=== PATIENT | male | born 1955 | race Caucasian/White ===

== ENCOUNTER 2018-12-11 13:30 | Inpatient (IN) | payer BC ==
[2018-12-11] MEDS ORDERED: NS 0.9% 1000 ML** 1,000 ML IV ONE (14:02)
[2018-12-11 14:26] LABS: ABS Eosinophils 0.1 10^3/ul (0-0.6); ABS Lymphocytes 1.1 10^3/ul (1.0-4.8); ABS Monocytes 0.8 10^3/ul (0-0.8); ABS Neutrophils 6.5 10^3/ul (1.5-7.7); Eosinophil % 0.7 %; Hematocrit 48 % (42-52); Hemoglobin 16.5 g/dL (14.0-18.0); Mean Corpuscular HGB Conc 34 g/dL (31-36); Mean Corpuscular Hemoglobin 32 pg (27-31); Mean Corpuscular Volume 92 fL (80-94); Mean Platelet Volume 7.9 fL (7.4-10.4); Nucleated Red Blood Cells % 0.4; Platelet Count 220 10^3/uL (150-450); Red Blood Count 5.24 10^6 /uL (4.18-5.48); Red Cell Distribution Width 13 % (10-15); White Blood Count 8.5 10^3/uL (3.5-10.8)
[2018-12-11 14:45] LABS: Albumin 4.5 g/dL (3.2-5.2); Albumin/Globulin Ratio 1.7 (1-3); C Reactive Protein 4.14 mg/L (<8.01); Calcium 9.6 mg/dL (8.6-10.3); EGFR African American 116.5 (>60); EGFR Non-African American 96.2 (>60); Globulin 2.7 g/dL (2-4); Potassium 3.7 mmol/L (3.5-5.0); Total Bilirubin 0.7 mg/dL (0.2-1.0); Total Protein 7.2 g/dL (6.4-8.9)
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
[2018-12-11] MEDS ORDERED: oxyCODONE/Acetamin 5/325 MG* TAB PO PRN (17:42)
[2018-12-11] MEDS ORDERED: traMADol TAB* 50 MG PO PRN (17:42)
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
[2018-12-11] MEDS: Heparin VIAL(*) 5000 UNITS/ML VIAL (FIVE THOUSAND) SUBCUT SCH (21:20)
[2018-12-12 00:22] LABS: Urine Appearance Clear; Urine Bilirubin Negative (Negative); Urine Blood Negative (Negative); Urine Color Yellow; Urine Glucose Negative (Negative); Urine Ketones 1+ (Negative); Urine Nitrite Negative (Negative); Urine Protein Negative (Negative); Urine Specific Gravity 1.018 (1.010-1.030); Urine Urobilinogen Negative (Negative)
[2018-12-12] MEDS: Heparin VIAL(*) 5000 UNITS/ML VIAL (FIVE THOUSAND) SUBCUT SCH ×3 (05:33→22:25)
[2018-12-12] MEDS: Aspirin EC TAB* 81 MG TAB.EC PO SCH (07:47)
[2018-12-12] MEDS: Hydrochlorothiazide TAB* 25 MG PO SCH (07:47)
[2018-12-12] MEDS: amLODIPine TAB* 5 MG PO SCH (07:51)
[2018-12-12] MEDS: Atorvastatin* 10 MG TAB PO SCH (07:51)
[2018-12-12] MEDS: Ramipril CAP* 10 MG PO SCH (07:51)
[2018-12-12] MEDS: Tamsulosin CAP* 0.4 MG PO SCH (11:29)
[2018-12-13] MEDS: Heparin VIAL(*) 5000 UNITS/ML VIAL (FIVE THOUSAND) SUBCUT SCH ×3 (06:24→22:01)
[2018-12-13] MEDS: Hydrochlorothiazide TAB* 25 MG PO SCH (10:15)
[2018-12-13] MEDS: Tamsulosin CAP* 0.4 MG PO SCH (10:16)
[2018-12-13] MEDS: amLODIPine TAB* 5 MG PO SCH (10:16)
[2018-12-13] MEDS: Atorvastatin* 10 MG TAB PO SCH (10:16)
[2018-12-13] MEDS: Aspirin EC TAB* 81 MG TAB.EC PO SCH (10:16)
[2018-12-13] MEDS: Acetaminophen TAB* 325 MG PO PRN (10:16)
[2018-12-13] MEDS: Ramipril CAP* 10 MG PO SCH (10:16)
[2018-12-13] MEDS: Docusate CAP* 100 MG PO PRN (22:01)
[2018-12-14] MEDS: Heparin VIAL(*) 5000 UNITS/ML VIAL (FIVE THOUSAND) SUBCUT SCH ×3 (06:35→22:46)
[2018-12-14] MEDS: Senna TAB 8.6 mg* TAB PO PRN (08:38)
[2018-12-14] MEDS: Docusate CAP* 100 MG PO PRN (08:38)
[2018-12-14] MEDS: Atorvastatin* 10 MG TAB PO SCH (08:38)
[2018-12-14] MEDS: Ramipril CAP* 10 MG PO SCH (08:38)
[2018-12-14] MEDS: amLODIPine TAB* 5 MG PO SCH (08:39)
[2018-12-14] MEDS: Hydrochlorothiazide TAB* 25 MG PO SCH (08:39)
[2018-12-14] MEDS: Tamsulosin CAP* 0.4 MG PO SCH (08:39)
[2018-12-14] MEDS: Aspirin EC TAB* 81 MG TAB.EC PO SCH (08:39)
[2018-12-15] MEDS: Heparin VIAL(*) 5000 UNITS/ML VIAL (FIVE THOUSAND) SUBCUT SCH ×3 (07:01→21:07)
[2018-12-15] MEDS: Hydrochlorothiazide TAB* 25 MG PO SCH (08:32)
[2018-12-15] MEDS: amLODIPine TAB* 5 MG PO SCH (08:32)
[2018-12-15] MEDS: Aspirin EC TAB* 81 MG TAB.EC PO SCH (08:32)
[2018-12-15] MEDS: Docusate CAP* 100 MG PO PRN (08:33)
[2018-12-15] MEDS: Senna TAB 8.6 mg* TAB PO PRN (08:33)
[2018-12-15] MEDS: Tamsulosin CAP* 0.4 MG PO SCH (08:33)
[2018-12-15] MEDS: Atorvastatin* 10 MG TAB PO SCH (08:33)
[2018-12-15] MEDS: Acetaminophen TAB* 325 MG PO PRN ×2 (08:33→21:10)
[2018-12-15] MEDS: Ramipril CAP* 10 MG PO SCH (08:33)
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
[2018-12-16] MEDS: Heparin VIAL(*) 5000 UNITS/ML VIAL (FIVE THOUSAND) SUBCUT SCH (06:07)
[2018-12-16] MEDS: amLODIPine TAB* 5 MG PO SCH (10:06)
[2018-12-16] MEDS: Hydrochlorothiazide TAB* 25 MG PO SCH (10:06)
[2018-12-16] MEDS: Aspirin EC TAB* 81 MG TAB.EC PO SCH (10:06)
[2018-12-16] MEDS: Atorvastatin* 10 MG TAB PO SCH (10:06)
[2018-12-16] MEDS: Ramipril CAP* 10 MG PO SCH (10:06)
[2018-12-16] MEDS: Tamsulosin CAP* 0.4 MG PO SCH (10:06)
[2018-12-16 10:13] VITALS: BP 139/70
== END 2018-12-16 11:00 | DRG 347 ==
LOC: ED 13:30 → MED 17:38
PROVIDERS: ADMIT Hospitalist; ATTEND Internal Medicine
DX: M54.5 Low back pain (principal); G81.94 Hemiplegia, unspecified affecting left nondominant side; M25.552 Pain in left hip; M25.551 Pain in right hip; I10 Essential (primary) hypertension; E78.5 Hyperlipidemia, unspecified; M16.0 Bilateral primary osteoarthritis of hip; M47.896 Other spondylosis, lumbar region; M21.372 Foot drop, left foot; Z75.1 Person awaiting admission to adequate facility elsewhere; Z87.820 Personal history of traumatic brain injury; Z79.82 Long term (current) use of aspirin; Z79.899 Other long term (current) drug therapy; Z87.891 Personal history of nicotine dependence
CPT/HCPCS: 36415; 72110; 72170; 80053; 81003; 82550; 83690; 84484; 85025; 86140; 93005; 99284; A9270-GY; G8978-GP-CK; G8979-GP-CI; J1644

== ENCOUNTER 2019-05-06 15:14 | Inpatient (IN) | payer BC ==
[2019-05-06] MEDS ORDERED: oxyCODONE/Acetamin 5/325 MG* TAB PO ONE (16:01)
--- NOTE | 2019-05-06 16:03 | ED ---
Lower Extremity - HPI Summary HPI Summary: Patient is a 64-year-old male who presents emergency department for worsening left hip pain and inability to walk secondary to pain. Patient is a history of brain injury resulting in hemiparesis of left lower extremity. He is a chronic left foot drop. Patient states over the last year he is been having progressively worse hip pain. Patient was seen and are ER December 2018 for hip and low back pain and was admitted custodially and placed at [facility]. Pt. was feeling better with PT/OT. Pt. is currently living at his private home by himself. He take percocet occasionally for pain. Pt. denies any new falls or injuries. Pt. states pain was so severe the last few days and he cannot walk secondary to pain. Pt. has apt. with orth next week but states he could not wait that long. Otherwise denies fever, illness, cp, sob, abd. pain. Sxs are moderate in severity. - History of Current Complaint Chief Complaint: EDFall Stated Complaint: LEG INJURY PER EMS Time Seen by Provider: 05/06/19 15:23 Hx Obtained From: Patient Pain Intensity: 3 - Allergies/Home Medications Allergies/Adverse Reactions: Allergies Allergy/AdvReac Type Severity Reaction Status Date / Time No Known Allergies Allergy Verified 12/11/18 13:45 PMH/Surg Hx/FS Hx/Imm Hx Previously Healthy: Yes Cardiovascular History: Reports: Hx Hypertension Musculoskeletal History: Reports: Other Musculoskeletal History Sensory History: Reports: Hx Contacts or Glasses Denies: Hx Hearing Aid Opthamlomology History: Reports: Hx Contacts or Glasses Neurological History: Reports: Hx Spinal Cord Injury - Surgical History Surgery Procedure, Year, and Place: right shoulder Infectious Disease History: No Infectious Disease History: Denies: Traveled Outside the [place] in Last 30 Days - Family History Known Family History: Positive: Non-Contributory - Social History Occupation: Retired Lives: Alone Alcohol Use: Daily Alcohol Amount: 6-8oz Hx Substance Use: No Substance Use Type: Reports: None Substance Use Comment - Amount & Last Used: 3-5 times a week Hx Tobacco Use: Yes Smoking Status (MU): Former Smoker Review of Systems Constitutional: Negative Negative: Fever Cardiovascular: Negative Negative: Chest Pain Respiratory: Negative Negative: Shortness Of Breath Gastrointestinal: Negative Negative: Abdominal Pain Positive: Other - left hip pain Skin: Negative All Other Systems Reviewed And Are Negative: Yes Physical Exam Triage Information Reviewed: Yes Vital Signs On Initial Exam: Initial Vitals Temp Pulse Resp BP Pulse Ox 98 F 83 16 155/86 94 05/06/19 15:19 05/06/19 15:19 05/06/19 15:19 05/06/19 15:19 05/06/19 15:19 Vital Signs Reviewed: Yes Appearance: Positive: Well-Appearing - Pt. lying in bed in NAD. Sister present. Skin: Positive: Warm, Dry Head/Face: Positive: Normal Head/Face Inspection Eyes: Positive: Normal, EOMI Neck: Positive: Supple Abdomen Description: Positive: Nontender, Soft Musculoskeletal: Positive: Other - Chronic left foot drop. No erythema, wounds, or edema to left leg. Full ROM at knee and hip. Neurological: Positive: Normal, CN Intact II-III Psychiatric: Positive: Affect/Mood Appropriate Procedures - Sedation Patient Received Moderate/Deep Sedation with Procedure: No Diagnostics - Vital Signs Vital Signs Temp Pulse Resp BP Pulse Ox 05/06/19 15:19 98 F 83 16 155/86 94 - Laboratory Result Diagrams: 05/06/19 16:43 05/06/19 16:43 Lab Statement: Any lab studies that have been ordered have been reviewed, and results considered in the medical decision making process. Lower Extremity Course/Dx - Course Course Of Treatment: Pt. unable to bear weight to left leg secondary to hip pain. Afebrile. He typically ambulated with walker. Pt. states he is now unable to get to the bathroom and lives alone. Case discussed with Dr. Bowman. Basic labs unremarkable. Percocet given for pain. Pt. seen by social media marketing manager. Pt. would like to go back to [facility]. Case discussed with Dr. rivas and plan is for admission for jail placement on Thursday. Pt. and family concerned for possible occult fx or injury that is not being seen on xrays. Will obtain ct for further eval. - Diagnoses Differential Diagnosis/HQI/PQRI: Positive: Arthritis, Bursitis, Gout, Sprain, Strain, Tendonitis Provider Diagnoses: Hip pain Discharge ED - Sign-Out/Discharge Documenting (check all that apply): Patient Departure - Discharge Plan Condition: Stable Disposition: ADMITTED TO [facility] Referrals: Casa Pat MD [Primary Care Provider] - - Billing Disposition and Condition Condition: STABLE Disposition: Admitted to [facility]
[2019-05-06 16:49] LABS: ABS Eosinophils 0.1 10^3/ul (0-0.6); ABS Lymphocytes 1.4 10^3/ul (1.0-4.8); ABS Monocytes 0.8 10^3/ul (0-0.8); ABS Neutrophils 4.9 10^3/ul (1.5-7.7); Hematocrit 44 % (42-52); Hemoglobin 15.3 g/dL (14.0-18.0); Mean Corpuscular HGB Conc 35 g/dL (31-36); Mean Corpuscular Hemoglobin 31 pg (27-31); Mean Corpuscular Volume 90 fL (80-94); Mean Platelet Volume 7.4 fL (7.4-10.4); Platelet Count 222 10^3/uL (150-450); Red Blood Count 4.92 10^6 /uL (4.18-5.48); Red Cell Distribution Width 14 % (10-15); White Blood Count 7.2 10^3/uL (3.5-10.8)
[2019-05-06 17:08] LABS: Albumin 4.3 g/dL (3.2-5.2); Albumin/Globulin Ratio 1.8 (1-3); BUN/Creatinine Ratio 20.6 (8-20); C Reactive Protein 3.06 mg/L (<8.01); Calcium 9.4 mg/dL (8.6-10.3); EGFR African American 142.1 (>60); EGFR Non-African American 117.4 (>60); Globulin 2.4 g/dL (2-4); Total Bilirubin 0.5 mg/dL (0.2-1.0); Total Protein 6.7 g/dL (6.4-8.9); Uric Acid 3.8 mg/dL (4.4-7.6)
[2019-05-06 18:26] LABS: Erythrocyte Sed Rate 7 mm/Hr (0-19)
[2019-05-06] MEDS ORDERED: Morphine INJ* 2 MG/ML 1 ML SYRINGE (TWO MG - NEW SYRINGE VERSION) IV PRN (18:46)
[2019-05-06] MEDS ORDERED: Acetaminophen TAB* 325 MG PO PRN (18:46)
[2019-05-06] MEDS: Heparin VIAL(*) 5000 UNITS/ML VIAL (FIVE THOUSAND) SUBCUT SCH (23:07)
[2019-05-06] MEDS: Docusate CAP* 100 MG PO PRN (23:52)
[2019-05-06] MEDS: oxyCODONE/Acetamin 5/325 MG* TAB PO PRN (23:53)
[2019-05-07] MEDS: Heparin VIAL(*) 5000 UNITS/ML VIAL (FIVE THOUSAND) SUBCUT SCH ×3 (08:02→21:54)
[2019-05-07] MEDS: Docusate CAP* 100 MG PO PRN (08:24)
[2019-05-07] MEDS: Ramipril CAP* 10 MG PO SCH (08:25)
[2019-05-07] MEDS: Tamsulosin CAP* 0.4 MG PO SCH (08:25)
[2019-05-07] MEDS: Aspirin EC TAB* 81 MG TAB.EC PO SCH (08:25)
[2019-05-07] MEDS: Atorvastatin* 10 MG TAB PO SCH (08:25)
[2019-05-07] MEDS: amLODIPine TAB* 5 MG PO SCH (08:25)
[2019-05-07] MEDS ORDERED: Hydrochlorothiazide TAB* 25 MG PO SCH (09:00)
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
[2019-05-07] MEDS: oxyCODONE/Acetamin 5/325 MG* TAB PO PRN ×2 (16:57→21:54)
--- NOTE | 2019-05-07 17:55 | PN ---
Subjective Date of Service: 05/07/19 Interval History: Pt states he continues to have severe pain in the L lateral hip upon bearing weight. He has not moved his bowels in several days but thinks if he get onto a commode he may be able to. Objective Active Medications: Acetaminophen (Tylenol Tab*) 650 mg PO Q4H PRN PRN Reason: PAIN-MILD/TEMP >/= 100.4 Amlodipine Besylate (Norvasc Tab*) 10 mg PO DAILY [facility] Last Admin: 05/07/19 08:25 Dose: 10 mg Aspirin (Aspirin Ec Tab*) 81 mg PO DAILY [facility] Last Admin: 05/07/19 08:25 Dose: 81 mg Atorvastatin Calcium (Lipitor*) 10 mg PO DAILY [facility] Last Admin: 05/07/19 08:25 Dose: 10 mg Docusate Sodium (Colace Cap*) 100 mg PO DAILY PRN PRN Reason: CONSTIPATION Last Admin: 05/07/19 08:24 Dose: 100 mg Heparin Sodium (Porcine) (Heparin Vial(*)) 5,000 units SUBCUT Q8HR [facility] Last Admin: 05/07/19 13:46 Dose: 5,000 units Morphine Sulfate (Morphine Inj (Syringe))*) 2 mg IV Q4H PRN PRN Reason: PAIN - SEVERE Oxycodone/Acetaminophen (Percocet 5/325 Tab*) 1 tab PO Q4H PRN PRN Reason: PAIN - MODERATE Last Admin: 05/07/19 16:57 Dose: 1 tab Ramipril (Altace Cap*) 10 mg PO DAILY [facility] Last Admin: 05/07/19 08:25 Dose: 10 mg Senna (Senokot 8.6 Mg Tab*) 1 tab PO DAILY PRN PRN Reason: CONSTIPATION Tamsulosin HCl (Flomax Cap*) 0.4 mg PO DAILY [facility] Last Admin: 05/07/19 08:25 Dose: 0.4 mg Vital Signs - 8 hr 05/07/19 05/07/19 05/07/19 11:24 16:04 16:57 Temperature 98.3 F 98.3 F Pulse Rate 93 85 Respiratory 14 18 18 Rate Blood Pressure 115/65 120/74 (mmHg) O2 Sat by Pulse 94 97 Oximetry Oxygen Devices in Use Now: None Appearance: Middle aged male sitting up in a chair, NAD Eyes: No Scleral Icterus Ears/Nose/Mouth/Throat: Mucous Membranes Moist Respiratory: Symmetrical Chest Expansion and Respiratory Effort, Clear to Auscultation Cardiovascular: NL Sounds; No Murmurs; No JVD, RRR, No Edema Abdominal: NL Sounds; No Tenderness; No Distention Extremities: No Clubbing, Cyanosis Skin: No Nodules or Sclerosis Neurological: Alert and Oriented x 3, - - L hemiparesis Result Diagrams: 05/06/19 16:43 05/06/19 16:43 Assess/Plan/Problems-Billing Mr Paul is a 64 yo M with L hemiparesis who presented to the ER with c/o progressive L hip pain and the inability to ambulate. - Patient Problems (1) Left hip pain Current Visit: Yes Status: Acute Code(s): M25.552 - PAIN IN LEFT HIP SNOMED Code(s): 37195525 Comment: Pt describes pain in the lateral aspect of the hip. No injury identified on CT. Pain is only present when trying to roll over in bed or with bearing weight. Will ask for ortho consult tomorrow. Continue PT and prn percocet. (2) Hypertension Current Visit: Yes Status: Acute Code(s): I10 - ESSENTIAL (PRIMARY) HYPERTENSION SNOMED Code(s): 92419331 Comment: BP is under good control. Continue norvasc and ramipril. (3) Hyperlipidemia Current Visit: Yes Status: Acute Code(s): E78.5 - HYPERLIPIDEMIA, UNSPECIFIED SNOMED Code(s): 26924804 Comment: Continue lipitor. (4) BPH (benign prostatic hyperplasia) Current Visit: Yes Status: Acute Code(s): N40.0 - BENIGN PROSTATIC HYPERPLASIA WITHOUT LOWER URINRY TRACT SYMP SNOMED Code(s): 371311920 Comment: Continue flomax. (5) DVT prophylaxis Current Visit: Yes Status: Acute Code(s): Z29.9 - ENCOUNTER FOR PROPHYLACTIC MEASURES, UNSPECIFIED SNOMED Code(s): 254463394 Comment: SQ Heparin (6) Full code status Current Visit: Yes Status: Acute Code(s): Z78.9 - OTHER SPECIFIED HEALTH STATUS SNOMED Code(s): 048285770
[2019-05-08] MEDS: Heparin VIAL(*) 5000 UNITS/ML VIAL (FIVE THOUSAND) SUBCUT SCH ×3 (06:19→20:52)
[2019-05-08] MEDS: Ramipril CAP* 10 MG PO SCH (08:21)
[2019-05-08] MEDS: Atorvastatin* 10 MG TAB PO SCH (08:22)
[2019-05-08] MEDS: Aspirin EC TAB* 81 MG TAB.EC PO SCH (08:22)
[2019-05-08] MEDS: amLODIPine TAB* 5 MG PO SCH (08:22)
[2019-05-08] MEDS: Tamsulosin CAP* 0.4 MG PO SCH (08:22)
[2019-05-08] MEDS ORDERED: Magnesium Hydroxide LIQ* 30 ML UDC PO PRN (10:03)
--- NOTE | 2019-05-08 10:06 | PN ---
Subjective Date of Service: 05/08/19 Interval History: Pt is feeling unchanged from yesterday. He continues to have severe pain in the left lateral hip upon rolling over in bed or bearing weight. No CP or SOB. He had only a very small amount of stool yesterday. Objective Active Medications: Acetaminophen (Tylenol Tab*) 650 mg PO Q4H PRN PRN Reason: PAIN-MILD/TEMP >/= 100.4 Amlodipine Besylate (Norvasc Tab*) 10 mg PO DAILY [facility] Last Admin: 05/08/19 08:22 Dose: 10 mg Aspirin (Aspirin Ec Tab*) 81 mg PO DAILY [facility] Last Admin: 05/08/19 08:22 Dose: 81 mg Atorvastatin Calcium (Lipitor*) 10 mg PO DAILY [facility] Last Admin: 05/08/19 08:22 Dose: 10 mg Docusate Sodium (Colace Cap*) 100 mg PO DAILY PRN PRN Reason: CONSTIPATION Last Admin: 05/07/19 08:24 Dose: 100 mg Heparin Sodium (Porcine) (Heparin Vial(*)) 5,000 units SUBCUT Q8HR [facility] Last Admin: 05/08/19 06:19 Dose: 5,000 units Morphine Sulfate (Morphine Inj (Syringe))*) 2 mg IV Q4H PRN PRN Reason: PAIN - SEVERE Oxycodone/Acetaminophen (Percocet 5/325 Tab*) 1 tab PO Q4H PRN PRN Reason: PAIN - MODERATE Last Admin: 05/07/19 21:54 Dose: 1 tab Ramipril (Altace Cap*) 10 mg PO DAILY [facility] Last Admin: 05/08/19 08:21 Dose: 10 mg Senna (Senokot 8.6 Mg Tab*) 1 tab PO DAILY PRN PRN Reason: CONSTIPATION Tamsulosin HCl (Flomax Cap*) 0.4 mg PO DAILY [facility] Last Admin: 05/08/19 08:22 Dose: 0.4 mg Vital Signs - 8 hr 05/08/19 05/08/19 05/08/19 03:15 07:15 08:00 Temperature 97.7 F 97.8 F Pulse Rate 65 62 Respiratory 16 18 18 Rate Blood Pressure 111/70 119/72 (mmHg) O2 Sat by Pulse 94 95 Oximetry Oxygen Devices in Use Now: None Appearance: Middle aged male sitting up in bed, NAD Eyes: No Scleral Icterus Ears/Nose/Mouth/Throat: Mucous Membranes Moist Respiratory: Symmetrical Chest Expansion and Respiratory Effort, Clear to Auscultation - anteriorly Cardiovascular: NL Sounds; No Murmurs; No JVD, RRR, No Edema Abdominal: - - BS soft, NT, mildly distended Extremities: No Clubbing, Cyanosis Skin: No Nodules or Sclerosis Neurological: Alert and Oriented x 3 Result Diagrams: 05/06/19 16:43 05/06/19 16:43 Assess/Plan/Problems-Billing Mr Paul is a 64 yo M with L hemiparesis who presented to the ER with c/o progressive L hip pain and the inability to ambulate. - Patient Problems (1) Left hip pain Current Visit: Yes Status: Acute Code(s): M25.552 - PAIN IN LEFT HIP SNOMED Code(s): 83587200 Comment: Orthopedics consult requested. Given his osteopenia I question if he would benefit from MRI to further evaluate for fracture but will wait for recommendations from ortho. Continue prn percocet. (2) Constipation Current Visit: Yes Status: Acute Code(s): K59.00 - CONSTIPATION, UNSPECIFIED SNOMED Code(s): 22401573 Comment: Pt still with no significant BM. Will add prn MOM. (3) Hypertension Current Visit: Yes Status: Acute Code(s): I10 - ESSENTIAL (PRIMARY) HYPERTENSION SNOMED Code(s): 27530996 Comment: BP is under good control. Continue norvasc and ramipril. (4) Hyperlipidemia Current Visit: Yes Status: Acute Code(s): E78.5 - HYPERLIPIDEMIA, UNSPECIFIED SNOMED Code(s): 83858636 Comment: Continue lipitor. (5) BPH (benign prostatic hyperplasia) Current Visit: Yes Status: Acute Code(s): N40.0 - BENIGN PROSTATIC HYPERPLASIA WITHOUT LOWER URINRY TRACT SYMP SNOMED Code(s): 516250424 Comment: Continue flomax. (6) DVT prophylaxis Current Visit: Yes Status: Acute Code(s): Z29.9 - ENCOUNTER FOR PROPHYLACTIC MEASURES, UNSPECIFIED SNOMED Code(s): 333855077 Comment: SQ Heparin (7) Full code status Current Visit: Yes Status: Acute Code(s): Z78.9 - OTHER SPECIFIED HEALTH STATUS SNOMED Code(s): 189050905
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
[2019-05-08] MEDS: oxyCODONE/Acetamin 5/325 MG* TAB PO PRN (20:53)
[2019-05-09] MEDS: Heparin VIAL(*) 5000 UNITS/ML VIAL (FIVE THOUSAND) SUBCUT SCH ×3 (06:31→22:30)
--- NOTE | 2019-05-09 07:47 | PN ---
Subjective Date of Service: 05/09/19 Interval History: Patient reports that hip pain is tolerable when sitting in the chair and worse with ambulating or placing pressure on the left leg. Denies chest pain or shortness of breath. Denies abd pain n/v/d. Denies fever or chills. MRI of the hip - negative for fracture- showed concern for high grade canal stenosis l3-l4- Spoke to Dr. Lyon- who recommended MRI of the lumbar spine and outpatient follow up Family History: Unchanged from Admission Social History: Unchanged from Admission Past Medical History: Unchanged from Admission Objective Active Medications: Acetaminophen (Tylenol Tab*) 650 mg PO Q4H PRN PRN Reason: PAIN-MILD/TEMP >/= 100.4 Amlodipine Besylate (Norvasc Tab*) 10 mg PO DAILY [facility] Last Admin: 05/08/19 08:22 Dose: 10 mg Aspirin (Aspirin Ec Tab*) 81 mg PO DAILY [facility] Last Admin: 05/08/19 08:22 Dose: 81 mg Atorvastatin Calcium (Lipitor*) 10 mg PO DAILY [facility] Last Admin: 05/08/19 08:22 Dose: 10 mg Docusate Sodium (Colace Cap*) 100 mg PO DAILY PRN PRN Reason: CONSTIPATION Last Admin: 05/07/19 08:24 Dose: 100 mg Heparin Sodium (Porcine) (Heparin Vial(*)) 5,000 units SUBCUT Q8HR [facility] Last Admin: 05/09/19 06:31 Dose: 5,000 units Magnesium Hydroxide (Milk Of Magnesia Liq*) 30 ml PO Q6H PRN PRN Reason: CONSTIPATION Last Admin: 05/08/19 10:32 Dose: 30 ml Morphine Sulfate (Morphine Inj (Syringe))*) 2 mg IV Q4H PRN PRN Reason: PAIN - SEVERE Oxycodone/Acetaminophen (Percocet 5/325 Tab*) 1 tab PO Q4H PRN PRN Reason: PAIN - MODERATE Last Admin: 05/08/19 20:53 Dose: 1 tab Ramipril (Altace Cap*) 10 mg PO DAILY [facility] Last Admin: 05/08/19 08:21 Dose: 10 mg Senna (Senokot 8.6 Mg Tab*) 1 tab PO DAILY PRN PRN Reason: CONSTIPATION Tamsulosin HCl (Flomax Cap*) 0.4 mg PO DAILY [facility] Last Admin: 05/08/19 08:22 Dose: 0.4 mg Vital Signs - 8 hr 05/09/19 05/09/19 00:00 00:04 Temperature 97.3 F Pulse Rate 62 Respiratory 18 16 Rate Blood Pressure 122/74 (mmHg) O2 Sat by Pulse 97 Oximetry Oxygen Devices in Use Now: None Appearance: alert , oriented x 3 , no acute distress Eyes: No Scleral Icterus Ears/Nose/Mouth/Throat: NL Teeth, Lips, Gums, Mucous Membranes Moist Neck: NL Appearance and Movements; NL JVP, Trachea Midline Respiratory: Symmetrical Chest Expansion and Respiratory Effort, Clear to Auscultation Cardiovascular: NL Sounds; No Murmurs; No JVD, No Edema Abdominal: NL Sounds; No Tenderness; No Distention Extremities: No Edema, No Clubbing, Cyanosis Skin: No Rash or Ulcers, No Nodules or Sclerosis Neurological: Alert and Oriented x 3 Nutrition: Taking PO's Result Diagrams: 05/06/19 16:43 05/06/19 16:43 Assess/Plan/Problems-Billing Mr Paul is a 64 yo M with L hemiparesis who presented to the ER with c/o progressive L hip pain and the inability to ambulate. - Patient Problems (1) Left hip pain Current Visit: Yes Status: Acute Code(s): M25.552 - PAIN IN LEFT HIP SNOMED Code(s): 06278464 Comment: Orthopedics consulted - recommended MRI of the left hip to R/O fracture - MRI of the hip - negative for fracture- showed concern for high grade canal stenosis l3-l4- Spoke to Dr. Lyon- who recommended MRI of the lumbar spine and xrays and outpatient follow up - Continue prn percocet. (2) Constipation Current Visit: Yes Status: Acute Code(s): K59.00 - CONSTIPATION, UNSPECIFIED SNOMED Code(s): 05081857 Comment: Medium BM today Will continue prn MOM. (3) BPH (benign prostatic hyperplasia) Current Visit: Yes Status: Acute Code(s): N40.0 - BENIGN PROSTATIC HYPERPLASIA WITHOUT LOWER URINRY TRACT SYMP SNOMED Code(s): 212800631 Comment: Continue flomax. (4) Hyperlipidemia Current Visit: Yes Status: Acute Code(s): E78.5 - HYPERLIPIDEMIA, UNSPECIFIED SNOMED Code(s): 03832769 Comment: Continue lipitor. (5) Hypertension Current Visit: Yes Status: Acute Code(s): I10 - ESSENTIAL (PRIMARY) HYPERTENSION SNOMED Code(s): 44536576 Comment: BP is under good control. Continue norvasc and ramipril. (6) DVT prophylaxis Current Visit: Yes Status: Acute Code(s): Z29.9 - ENCOUNTER FOR PROPHYLACTIC MEASURES, UNSPECIFIED SNOMED Code(s): 035048955 Comment: SQ Heparin (7) Full code status Current Visit: Yes Status: Acute Code(s): Z78.9 - OTHER SPECIFIED HEALTH STATUS SNOMED Code(s): 858337335 Status and Disposition: likely discharge to [facility]
[2019-05-09] MEDS: amLODIPine TAB* 5 MG PO SCH (10:07)
[2019-05-09] MEDS: Aspirin EC TAB* 81 MG TAB.EC PO SCH (10:07)
[2019-05-09] MEDS: Atorvastatin* 10 MG TAB PO SCH (10:07)
[2019-05-09] MEDS: Ramipril CAP* 10 MG PO SCH (10:08)
[2019-05-09] MEDS: Tamsulosin CAP* 0.4 MG PO SCH (10:08)
[2019-05-09] MEDS: Senna TAB 8.6 mg* TAB PO PRN (10:19)
[2019-05-09] MEDS: Docusate CAP* 100 MG PO PRN (10:19)
[2019-05-09] MEDS: oxyCODONE/Acetamin 5/325 MG* TAB PO PRN ×2 (14:12→22:30)
[2019-05-10] MEDS: Heparin VIAL(*) 5000 UNITS/ML VIAL (FIVE THOUSAND) SUBCUT SCH ×3 (06:08→21:31)
[2019-05-10] MEDS: Atorvastatin* 10 MG TAB PO SCH (09:31)
[2019-05-10] MEDS: Ramipril CAP* 10 MG PO SCH (09:31)
[2019-05-10] MEDS: Aspirin EC TAB* 81 MG TAB.EC PO SCH (09:31)
[2019-05-10] MEDS: amLODIPine TAB* 5 MG PO SCH (09:31)
[2019-05-10] MEDS: Tamsulosin CAP* 0.4 MG PO SCH (09:31)
[2019-05-10] MEDS: Docusate CAP* 100 MG PO PRN (09:36)
[2019-05-10] MEDS: Senna TAB 8.6 mg* TAB PO PRN (09:36)
--- NOTE | 2019-05-10 15:10 | PN ---
Progress Note - Progress Note Date of Service: 05/10/19 SOAP: [Pt was seen this morning in bed. He states that he does have lateral and posterior hip pain. He feels it is difficulty to ambulate on it. ] MRI of the hip - negative for fracture- showed concern for high grade canal stenosis l3-l4- Dr. Lyon recommended MRI of the lumbar spine and outpatient follow up Ortho will follow only as needed at this point
--- NOTE | 2019-05-10 18:05 | PN ---
Subjective Date of Service: 05/10/19 Interval History: patient reports continued left hip pain wore with walking but slightly better today. Denies loss of bowel or bladder function. Denies fever or chills. Denies chest pain or shortness breath. Denies abd pain n/v/d. Family History: Unchanged from Admission Social History: Unchanged from Admission Past Medical History: Unchanged from Admission Objective Active Medications: Acetaminophen (Tylenol Tab*) 650 mg PO Q4H PRN PRN Reason: PAIN-MILD/TEMP >/= 100.4 Amlodipine Besylate (Norvasc Tab*) 10 mg PO DAILY [facility] Last Admin: 05/10/19 09:31 Dose: 10 mg Aspirin (Aspirin Ec Tab*) 81 mg PO DAILY [facility] Last Admin: 05/10/19 09:31 Dose: 81 mg Atorvastatin Calcium (Lipitor*) 10 mg PO DAILY [facility] Last Admin: 05/10/19 09:31 Dose: 10 mg Docusate Sodium (Colace Cap*) 100 mg PO DAILY PRN PRN Reason: CONSTIPATION Last Admin: 05/10/19 09:36 Dose: 100 mg Heparin Sodium (Porcine) (Heparin Vial(*)) 5,000 units SUBCUT Q8HR [facility] Last Admin: 05/10/19 13:45 Dose: 5,000 units Magnesium Hydroxide (Milk Of Magnesia Liq*) 30 ml PO Q6H PRN PRN Reason: CONSTIPATION Last Admin: 05/08/19 10:32 Dose: 30 ml Morphine Sulfate (Morphine Inj (Syringe))*) 2 mg IV Q4H PRN PRN Reason: PAIN - SEVERE Oxycodone/Acetaminophen (Percocet 5/325 Tab*) 1 tab PO Q4H PRN PRN Reason: PAIN - MODERATE Last Admin: 05/09/19 22:30 Dose: 1 tab Ramipril (Altace Cap*) 10 mg PO DAILY [facility] Last Admin: 05/10/19 09:31 Dose: 10 mg Senna (Senokot 8.6 Mg Tab*) 1 tab PO DAILY PRN PRN Reason: CONSTIPATION Last Admin: 05/10/19 09:36 Dose: 1 tab Tamsulosin HCl (Flomax Cap*) 0.4 mg PO DAILY [facility] Last Admin: 05/10/19 09:31 Dose: 0.4 mg Vital Signs - 8 hr 02/04/20 16:38 Temperature 98.1 F Pulse Rate 73 Respiratory 18 Rate Blood Pressure 130/68 (mmHg) O2 Sat by Pulse 98 Oximetry Oxygen Devices in Use Now: None Appearance: appears comfortable, no acute distress Eyes: No Scleral Icterus Ears/Nose/Mouth/Throat: Clear Oropharnyx, Mucous Membranes Moist Neck: NL Appearance and Movements; NL JVP, Trachea Midline Respiratory: Symmetrical Chest Expansion and Respiratory Effort, Clear to Auscultation Cardiovascular: NL Sounds; No Murmurs; No JVD, No Edema Abdominal: NL Sounds; No Tenderness; No Distention Extremities: No Edema, No Clubbing, Cyanosis, - - left arm and leg with chronic weakness d/t hx TBI 45 y.o Skin: No Rash or Ulcers Neurological: Alert and Oriented x 3 Nutrition: Taking PO's Result Diagrams: 05/06/19 16:43 05/06/19 16:43 Assess/Plan/Problems-Billing Mr Paul is a 64 yo M with L hemiparesis who presented to the ER with c/o progressive L hip pain and the inability to ambulate. - Patient Problems (1) Left hip pain Current Visit: Yes Status: Acute Code(s): M25.552 - PAIN IN LEFT HIP SNOMED Code(s): 71598778 Comment: Orthopedics consulted - recommended MRI of the left hip to R/O fracture - MRI of the hip - negative for fracture- showed concern for high grade canal stenosis l3-l4- Spoke to Dr. Lyon- who recommended MRI of the lumbar spine and xrays and outpatient follow up - Continue prn percocet. (2) Constipation Current Visit: Yes Status: Acute Code(s): K59.00 - CONSTIPATION, UNSPECIFIED SNOMED Code(s): 51837296 Comment: Medium BM today Will continue prn MOM. (3) BPH (benign prostatic hyperplasia) Current Visit: Yes Status: Acute Code(s): N40.0 - BENIGN PROSTATIC HYPERPLASIA WITHOUT LOWER URINRY TRACT SYMP SNOMED Code(s): 952072962 Comment: Continue flomax. (4) Hyperlipidemia Current Visit: Yes Status: Acute Code(s): E78.5 - HYPERLIPIDEMIA, UNSPECIFIED SNOMED Code(s): 61522142 Comment: Continue lipitor. (5) Hypertension Current Visit: Yes Status: Acute Code(s): I10 - ESSENTIAL (PRIMARY) HYPERTENSION SNOMED Code(s): 57849654 Comment: BP is under good control. Continue norvasc and ramipril. (6) DVT prophylaxis Current Visit: Yes Status: Acute Code(s): Z29.9 - ENCOUNTER FOR PROPHYLACTIC MEASURES, UNSPECIFIED SNOMED Code(s): 850325929 Comment: SQ Heparin (7) Full code status Current Visit: Yes Status: Acute Code(s): Z78.9 - OTHER SPECIFIED HEALTH STATUS SNOMED Code(s): 145708291 Status and Disposition: likely discharge to [facility] tomorrow
[2019-05-10] MEDS: oxyCODONE/Acetamin 5/325 MG* TAB PO PRN (21:30)
[2019-05-11] MEDS: Heparin VIAL(*) 5000 UNITS/ML VIAL (FIVE THOUSAND) SUBCUT SCH (05:54)
[2019-05-11] MEDS: amLODIPine TAB* 5 MG PO SCH (09:52)
[2019-05-11] MEDS: Ramipril CAP* 10 MG PO SCH (09:52)
[2019-05-11] MEDS: Tamsulosin CAP* 0.4 MG PO SCH (09:52)
[2019-05-11] MEDS: Senna TAB 8.6 mg* TAB PO PRN (09:52)
[2019-05-11] MEDS: Docusate CAP* 100 MG PO PRN (09:53)
[2019-05-11] MEDS: Atorvastatin* 10 MG TAB PO SCH (09:53)
[2019-05-11] MEDS: Aspirin EC TAB* 81 MG TAB.EC PO SCH (09:53)
[2019-05-11 12:02] VITALS: BP 114/69
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
== END 2019-05-11 14:05 | DRG 347 ==
LOC: ED 15:14 → MED 17:24 → OBSVTOIN 05-07 12:00
PROVIDERS: ADMIT Internal Medicine; ATTEND Internal Medicine
DX: M48.061 Spinal stenosis, lumbar region without neurogenic claudication (principal); G81.94 Hemiplegia, unspecified affecting left nondominant side; E87.1 Hypo-osmolality and hyponatremia; I10 Essential (primary) hypertension; E78.5 Hyperlipidemia, unspecified; M21.372 Foot drop, left foot; E87.8 Other disorders of electrolyte and fluid balance, not elsewhere classified; N40.0 Benign prostatic hyperplasia without lower urinary tract symptoms; M85.88 Other specified disorders of bone density and structure, other site; M16.12 Unilateral primary osteoarthritis, left hip; K59.00 Constipation, unspecified; Z79.82 Long term (current) use of aspirin; Z87.820 Personal history of traumatic brain injury; Z87.891 Personal history of nicotine dependence; Z79.899 Other long term (current) drug therapy
CPT/HCPCS: 36415; 72100; 72148; 72192; 80053; 84550; 85025; 85652; 86140; 96372; 99283; A9270-GY; G0378; J1644